=== PATIENT | male | born 1945 | race Caucasian/White ===

== ENCOUNTER 2018-11-17 13:29 | Inpatient (IN) | payer MEDICARE, BC | END 2019-01-14 14:40 | LOC: SUR 3N 01-14 02:40 → PCU 3S 12-31 16:10 → ICU 2S 13:29 | PROC: 5A1955Z Respiratory Ventilation, Greater than 96 Consecutive Hours (ICD-10-PCS; principal; ~2018-11-17) | PROC: 5A1D70Z Performance of Urinary Filtration, Intermittent, Less than 6 Hours Per Day (ICD-10-PCS; ~2018-11-17) | PROC: 0B113F4 Bypass Trachea to Cutaneous with Tracheostomy Device, Percutaneous Approach (ICD-10-PCS; ~2018-11-17) | PROC: 0DH63UZ Insertion of Feeding Device into Stomach, Percutaneous Approach (ICD-10-PCS; ~2018-11-17) | PROC: 3E0G76Z Introduction of Nutritional Substance into Upper GI, Via Natural or Artificial Opening (ICD-10-PCS; ~2018-11-17) | DX: A41.9 Sepsis, unspecified organism (principal); J96.90 Respiratory failure, unspecified, unspecified whether with hypoxia or hypercapnia; E43 Unspecified severe protein-calorie malnutrition; N17.9 Acute kidney failure, unspecified; B49 Unspecified mycosis; Z89.612 Acquired absence of left leg above knee; Z89.611 Acquired absence of right leg above knee ==